=== PATIENT | male | born 1975 | race Caucasian/White ===

== ENCOUNTER → 2018-01-23 15:41 | Outpatient (CLI) | payer OTHER, MEDICAID, SELFPAY ==
--- NOTE | 2018-01-23 15:48 | DI.RAD.S_ITS ---
PROCEDURE: XR KNEE RT 3V INDICATIONS: R knee pain TECHNIQUE: 3 views of the knee were acquired. COMPARISON: Mitchell Galdino, MR, MR KNEE LT WO CON, 02/22/2017, 9:50. [facility], CR, KNEE 3V LEFT, 12/27/2016, 9:35. FINDINGS: Bones: No fractures or dislocations. No suspicious bony lesions. Soft tissues: No joint effusion. No suspicious soft tissue calcifications. IMPRESSION: No definite radiographic abnormality. If pain persists, consider cross sectional imaging such as CT or MRI for further assessment. Dictated by: Shaka ENRIQUEZ Interpreted: Jina Pizarro MD on 01/23/2018 at 16:24 Approved by: Jina Pizarro M.D. on 01/23/2018 at 17:12
== END ==
PROVIDERS: Family Provider Physician Assistant; PCP Family Medicine; Visit Provider Physician Assistant
DX: M25.561 Pain in right knee (principal)
CPT/HCPCS: 73562